=== PATIENT | female | born 1990 | race Caucasian/White ===

== ENCOUNTER 2021-10-16 23:16 | Emergency (ER) | payer OTHER ==
[2021-10-16 23:41] LABS: HEMOGLOBIN 13.5 gm/dl (12.3-15.3); RED BLOOD COUNT 5.1 M/UL (4.00-5.10); WHITE BLOOD COUNT 14.1 K/UL (4.5-11.0)
[2021-10-17 00:16] LABS: BUN/CREATININE RATIO 18 (0-10)
[2021-10-17] MEDS ORDERED: PREDNISONE 20 M20 MG PO (01:36)
[2021-10-17] MEDS ORDERED: ALBUTEROL2.5 MG/3 M INH (01:36)
== END 2021-10-17 01:44 | disposition home or self-care (01) ==
LOC: ER1 23:16
PROVIDERS: Student in an Organized Health Care Education/Training Program
DX: J45.909 Unspecified asthma, uncomplicated (principal); I10 Essential (primary) hypertension; Z20.822 Contact with and (suspected) exposure to COVID-19
CPT/HCPCS: 80053; 82550; 82553; 83880; 84484; 84703; 85025; 93005; 94664; 96374; 99285; J1100; Q9967